=== PATIENT | male | born 1950 | race Caucasian/White ===

== ENCOUNTER 2023-12-11 13:21 | Inpatient (IN) | payer MEDICARE, MEDICAID, SELFPAY ==
--- NOTE | ~2023-12-11 | XR_ITS ---
EXAMINATION: XR ABDOMEN KUB CLINICAL INDICATION: Constipation COMPARISON: None available. TECHNIQUE: AP view of the abdomen. FINDINGS: AP supine x-rays of the abdomen show diffuse air filled large and small bowel loops. The right upper abdominal jejunal loop shows borderline dilatation to 3.2 cm in diameter. Fecal shadows are seen filling the transverse and descending colon. There is normal visualization of rectosigmoid bowel gas. Multiple surgical clips are seen in midline lower pelvic cavity. Multiple Spring coil-like surgical anchors are seen in the right lower abdomen. XR/XR KUB IMPRESSION: 1. Diffuse air-filled large and small bowel loops are seen. The right upper abdominal jejunal loop shows borderline dilatation to 3.2 cm in diameter. The findings are nonspecific and could reflect an ileus. 2. Fecal retention in transverse and descending colon is seen. 3. Status post pelvic surgery, possible prostatectomy and right lower abdominal herniorrhaphy.
--- NOTE | ~2023-12-11 | XR_ITS ---
EXAMINATION: XR ABDOMEN KUB CLINICAL INDICATION: Constipation COMPARISON: None available. TECHNIQUE: AP view of the abdomen. FINDINGS: There is moderate stool burden noted throughout the colon with gas pattern is nonobstructive. Multiple surgical clips and postsurgical changes overlie the pelvis. Prominent degenerative scoliosis of the lumbar spine with convex curve to the left. Moderate arthrosis of the left hip joint. 5. There are rounded calcification overlying the right kidney likely reflects a renal calculus. XR/XR KUB IMPRESSION: 1. Moderate stool burden throughout the colon. 2. Postsurgical changes. 3. Suspect right renal calculus.
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
[2023-12-11 14:00] VITALS: BP 145/75; PULSE 90; RESP 18; TEMP 36.7; O2SAT 96
--- NOTE | 2023-12-11 16:14 | PC.ADMIT ---
Didier, 73 y.o. male admitted to ED/[facility] from [facility] for suicidal and homicidal ideation. Patient is alert, oriented x4. Lives alone in an apartment, often feels isolated. During assessment denies SI, HI, AVH. Reported recent increase in depression and anxiety d/t feeling hopeless regarding being unable to take care of needs at home. Also he would like to get help regarding his mental health. Pt ambulates independently, gait steady. Skin check completed - intact. T 98.1, P 90. BP 145/75, O2sat 96% on RA. Denies pain. WT 183.6 lb.
[2023-12-11 18:00] VITALS: BP 129/77; PULSE 77; RESP 16; TEMP 35.9; O2SAT 97
--- NOTE | 2023-12-11 18:34 | PC.ADMIT ---
New order from Farzane[facility] Red for KUB x-ray d/t patient c/o prolonged constipation. X-ray completed, awaiting report.
[2023-12-11 19:20] VITALS: BMI 24.2
[2023-12-11] MEDS: diazePAM 5 MG TABLET PO (21:19)
[2023-12-11] MEDS: traZODone HCL 100 MG TABLET 200 MG PO (21:19)
[2023-12-12] MEDS: traZODone HCL 50 MG TABLET PO (00:06)
[2023-12-12 07:51] LABS: Estimated Average Glucose 103 mg/dL; Hemoglobin A1c % 5.2 % (<6.0)
[2023-12-12 07:59] LABS: Alanine Aminotransferase 17 U/L (0-40); Albumin Level 3.7 g/dL (3.5-5.0); Alkaline Phosphatase 65 U/L (39-117); Anion Gap 12 (12-20); Aspartate Amino Transferase 14 U/L (5-37); Bilirubin Total 0.8 mg/dL (0.0-1.0); Blood Urea Nitrogen 21 mg/dL (9-16); Calcium 9.2 mg/dL (8.4-10.2); Carbon Dioxide 27 mmol/L (22-29); Chloride 107 mmol/L (96-108); Cholesterol 173 mg/dL (<200); Estimated Glomerular Filt Rate > 60; Glucose Fasting 86 mg/dL (60-99); HDL Cholesterol 46 mg/dL (>40); LDL Cholesterol Calculated 116 mg/dL (<100); Potassium 4.7 mmol/L (3.3-5.1); Sodium 141 mmol/L (135-145); Total Protein 6.4 g/dL (6.5-8.0); Triglycerides 57 mg/dL (<150)
[2023-12-12 08:14] LABS: Thyroid Stimulating Hormone 1.21 uIU/mL (0.32-4.0)
[2023-12-12 08:19] VITALS: BP 121/66; PULSE 70; RESP 16; TEMP 37; O2SAT 96
[2023-12-12] MEDS: buPROPion HCl XL 150 MG TAB.ER.24H 450 MG PO (08:21)
[2023-12-12] MEDS: DULoxetine HCl 60 MG CAPSULE.DR PO (08:22)
[2023-12-12] MEDS: diazePAM 5 MG TABLET PO ×3 (08:22→22:05)
[2023-12-12] MEDS: Lurasidone HCl 20 MG TABLET PO (08:22)
[2023-12-12] MEDS: Amphetamine Mixed Salts 10 MG TABLET 15 MG PO ×2 (08:22→16:23)
[2023-12-12 08:28] LABS: Folate 9.8 ng/mL (> or = 4.0); Vitamin B12 813 pg/mL (200-900)
[2023-12-12] MEDS: Docusate Sodium 100 MG CAPSULE 200 MG PO (09:11)
[2023-12-12] MEDS: Milk of Magnesia 30 ML ORAL.SUSP PO ×2 (09:11→20:09)
--- NOTE | 2023-12-12 10:14 | HO.PM.IMCN ---
History of Present Illness Data of Consult Service Date: 12/12/23 Primary Care Provider: Hossein Morejon MD HPI 73 year old male PMH depression, GERD, esophageal dysplasia, chronic constipation admittion to psychiatric service for acute decompensation of major depressive disorder. Patient was transferred from [facility] 12/11/2023 to [facility] psychiatric service. Patient seen/examined by Hospital service 0915 12/12/23. Patient reports he feels well overall, reports chronic constipation, last BM 7 weeks ago. KUB was ordered by provider overnight, results as below. Also reports hx of GERD and requesting prn tums in addition to his home PPI. Denies nausea/vomiting/abdominal pain, chest discomfort, dyspnea, hematuria, melena, hematochezia, recent trauma/travel, HI/SI. PMFSH Social History Household Members: None Housing: Apartment Do you presently have visiting nurse or other home services: No Patient Tobacco Use Status: Never used Tobacco Use of substances other than those prescribed or required for medical reasons: No Currently Displaying Signs/Symptoms of Drug Intoxication Withdrawal: No Have you been hit, kicked, punched, or otherwise hurt by someone within the past year? If so, by whom?: No Do you feel safe in your current relationship?: Yes Is there a partner from a previous relationship who is making you feel unsafe now?: No Are you made to feel afraid or neglected: No Advance Directives: Yes Advance Directives Information Provided: Yes Advance Directives on File: No Do you have thoughts of harming others: None Do you have a plan to hurt others: No Plan Recently lost weight without trying: Unsure Poor oral hygiene: No Meds Allergies Allergy/AdvReac Type Severity Reaction Status Date / Time amoxicillin Allergy Unknown Verified 12/11/23 17:16 oxycodone Allergy Unknown Verified 12/11/23 17:16 Active Medications: Current Medications Acetaminophen (Acetaminophen 325 Mg Tablet) 650 mg PO Q6H PRN PRN Reason: Headache/Pain Mild Scale (1-3) Al Hydroxide/Mg Hydroxide (Magnesium Hydrox/Alum Hydrox 30 Ml Oral.Susp) 30 ml PO Q6H PRN PRN Reason: Heartburn/Nausea Amphetamine/Dextroamphetamine (Amphetamine Mixed Salts 10 Mg Tablet) 15 mg PO BIDWM [facility] Last Admin: 12/12/23 08:22 Dose: 15 mg Bupropion HCl (Bupropion Hcl Xl 150 Mg Tab.Er.24h) 450 mg PO DAILY [facility] Last Admin: 12/12/23 08:21 Dose: 450 mg Diazepam (Diazepam 5 Mg Tablet) 5 mg PO TID [facility] Last Admin: 12/12/23 08:22 Dose: 5 mg Docusate Sodium (Docusate Sodium 100 Mg Capsule) 200 mg PO DAILY [facility] Last Admin: 12/12/23 09:11 Dose: 200 mg Duloxetine HCl (Duloxetine Hcl 60 Mg Capsule.Dr) 60 mg PO DAILY [facility] Last Admin: 12/12/23 08:22 Dose: 60 mg Hydroxyzine HCl (Hydroxyzine Hcl 25 Mg Tablet) 25 mg PO Q6H PRN PRN Reason: Anxiety Lurasidone HCl (Lurasidone Hcl 20 Mg Tablet) 20 mg PO DAILY [facility] Last Admin: 12/12/23 08:22 Dose: 20 mg Magnesium Hydroxide (Milk Of Magnesia 30 Ml Oral.Susp) 30 ml PO DAILY PRN PRN Reason: Constipation Last Admin: 12/12/23 09:11 Dose: 30 ml Trazodone HCl (Trazodone Hcl 50 Mg Tablet) 50 mg PO BEDTIME MRX1 PRN PRN Reason: Insomnia Last Admin: 12/12/23 00:06 Dose: 50 mg Trazodone HCl (Trazodone Hcl 100 Mg Tablet) 200 mg PO BEDTIME PRN PRN Reason: Insomnia Last Admin: 12/11/23 21:19 Dose: 200 mg Home Medications Medication Instructions Recorded Confirmed Last Taken Type bupropion HCl 200 mg tablet,12 hr 200 mg PO BID 12/11/23 12/11/23 Unknown History sustained-release dextroamphetamine-amphetamine 15 15 mg PO BID 12/11/23 12/11/23 Unknown History mg tablet (Adderall) diazepam 5 mg tablet 5 mg PO TID 12/11/23 12/11/23 Unknown History duloxetine 60 mg capsule,delayed 60 mg PO DAILY 12/11/23 12/11/23 Unknown History release lurasidone 20 mg tablet 20 mg PO DAILY 12/11/23 12/11/23 Unknown History trazodone 100 mg tablet 200 mg PO QPM PRN Insomnia 12/11/23 12/11/23 Unknown History Physical Exam Vital Signs and Narrative: Vital Signs: Last Vital Signs Temp 98.6 F 12/12/23 08:19 Pulse 70 12/12/23 08:19 Resp 16 12/12/23 08:19 BP 121/66 12/12/23 08:19 Pulse Ox 96 12/12/23 08:19 O2 Del Method Room Air 12/12/23 08:19 BMI result Body Mass Index 24.2 Constitutional: Well appearing, year old male, NAD HEENT: No lymphadenopathy, no scleral icterae, no JVD Cardiovascular: S1/S2 heard, No MRG Respiratory: Lung sounds CTA bilaterally Gastrointestinal: Normal BS throughout, neg murphys. : Deferred Neuro: No FND, moving all 4 extremities spontaneously Psych: Calm/cooperative IV Line: none placed Results Labs 12/12/23 07:28 Labs: Laboratory Results - last 24 hr 12/12/23 07:28 Anion Gap 12 Estim Creat Clear Calc 66.0 Estimated GFR > 60 Fasting Glucose 86 Estimat Average Glucose 103 Hemoglobin A1c % 5.2 Calcium 9.2 Total Bilirubin 0.8 AST 14 ALT 17 Alkaline Phosphatase 65 Total Protein 6.4 L Albumin 3.7 Triglycerides 57 Cholesterol 173 LDL Cholesterol, Calc 116 H HDL Cholesterol 46 Vitamin B12 813 Folate 9.8 TSH 1.21 Assessment and Plan (1) GERD (gastroesophageal reflux disease): Status: Acute (2) Constipation: Status: Acute Plan 73 yo male aforementioned PMH admitted to psychiatric service for acute decompensation psychiatric disorder 1. History of GERD/Esophageal Dysplasia/ Chronic Constipation: sig hx of acid reflux/constipation at home, on omeprazole at home, requesting tums prn, he does not take chronic meds for his constipation at home, last BM 7 weeks ago. He states that when he becomes impacted he manually disimpacts himself and is requesting to do so. Offical read on KUB not competed as of 12/12 although it appears there is extensive impaction of stool. pt remains HD stable, no report of abd pain, no special dietary restrictions requested. Plan: -start docusate 200mg daily -MOM prn -unit to determine if manual disimpaction by patient is ok per there standards. Unit advised to hold off giving pt permission to do so until KUB is officially read -increase PO h20, fiber supplementation -regular diet 2. Major depressive disorder: management as per psychiatric care team.
--- NOTE | 2023-12-12 10:18 | P.CONHOSP_ITS ---
History of Present Illness Data of Consult Primary Care Provider: Hossein Morejon MD HPI 73 year old male PMH major depression, GERD, esophageal dysplasia, chronic constipation presents for [facility] Social History Household Members: None Housing: Apartment Do you presently have visiting nurse or other home services: No Patient Tobacco Use Status: Never used Tobacco Use of substances other than those prescribed or required for medical reasons: No Have you been hit, kicked, punched, or otherwise hurt by someone within the past year? If so, by whom?: No Do you feel safe in your current relationship?: Yes Is there a partner from a previous relationship who is making you feel unsafe now?: No Are you made to feel afraid or neglected: No Advance Directives: Yes Advance Directives Information Provided: Yes Advance Directives on File: No Do you have thoughts of harming others: None Do you have a plan to hurt others: No Plan Recently lost weight without trying: Unsure Poor oral hygiene: No Meds Allergies Allergy/AdvReac Type Severity Reaction Status Date / Time amoxicillin Allergy Unknown Verified 12/11/23 17:16 oxycodone Allergy Unknown Verified 12/11/23 17:16 Active Medications: Current Medications Acetaminophen (Acetaminophen 325 Mg Tablet) 650 mg PO Q6H PRN PRN Reason: Headache/Pain Mild Scale (1-3) Al Hydroxide/Mg Hydroxide (Magnesium Hydrox/Alum Hydrox 30 Ml Oral.Susp) 30 ml PO Q6H PRN PRN Reason: Heartburn/Nausea Amphetamine/Dextroamphetamine (Amphetamine Mixed Salts 10 Mg Tablet) 15 mg PO BIDWM [facility] Last Admin: 12/12/23 08:22 Dose: 15 mg Bupropion HCl (Bupropion Hcl Xl 150 Mg Tab.Er.24h) 450 mg PO DAILY [facility] Last Admin: 12/12/23 08:21 Dose: 450 mg Diazepam (Diazepam 5 Mg Tablet) 5 mg PO TID [facility] Last Admin: 12/12/23 08:22 Dose: 5 mg Docusate Sodium (Docusate Sodium 100 Mg Capsule) 200 mg PO DAILY [facility] Last Admin: 12/12/23 09:11 Dose: 200 mg Duloxetine HCl (Duloxetine Hcl 60 Mg Capsule.Dr) 60 mg PO DAILY [facility] Last Admin: 12/12/23 08:22 Dose: 60 mg Hydroxyzine HCl (Hydroxyzine Hcl 25 Mg Tablet) 25 mg PO Q6H PRN PRN Reason: Anxiety Lurasidone HCl (Lurasidone Hcl 20 Mg Tablet) 20 mg PO DAILY [facility] Last Admin: 12/12/23 08:22 Dose: 20 mg Magnesium Hydroxide (Milk Of Magnesia 30 Ml Oral.Susp) 30 ml PO DAILY PRN PRN Reason: Constipation Last Admin: 12/12/23 09:11 Dose: 30 ml Trazodone HCl (Trazodone Hcl 50 Mg Tablet) 50 mg PO BEDTIME MRX1 PRN PRN Reason: Insomnia Last Admin: 12/12/23 00:06 Dose: 50 mg Trazodone HCl (Trazodone Hcl 100 Mg Tablet) 200 mg PO BEDTIME PRN PRN Reason: Insomnia Last Admin: 12/11/23 21:19 Dose: 200 mg Home Medications Medication Instructions Recorded Confirmed Last Taken Type bupropion HCl 200 mg tablet,12 hr 200 mg PO BID 12/11/23 12/11/23 Unknown History sustained-release dextroamphetamine-amphetamine 15 15 mg PO BID 12/11/23 12/11/23 Unknown History mg tablet (Adderall) diazepam 5 mg tablet 5 mg PO TID 12/11/23 12/11/23 Unknown History duloxetine 60 mg capsule,delayed 60 mg PO DAILY 12/11/23 12/11/23 Unknown History release lurasidone 20 mg tablet 20 mg PO DAILY 12/11/23 12/11/23 Unknown History trazodone 100 mg tablet 200 mg PO QPM PRN Insomnia 12/11/23 12/11/23 Unknown History Physical Exam 2 Vital Signs and Narrative: Vital Signs: Last Vital Signs Temp 98.6 F 12/12/23 08:19 Pulse 70 12/12/23 08:19 Resp 16 12/12/23 08:19 BP 121/66 12/12/23 08:19 Pulse Ox 96 12/12/23 08:19 O2 Del Method Room Air 12/12/23 08:19 BMI result Body Mass Index 24.2 Results Labs 12/12/23 07:28 Labs: Laboratory Results - last 24 hr 12/12/23 07:28 Anion Gap 12 Estim Creat Clear Calc 66.0 Estimated GFR > 60 Fasting Glucose 86 Estimat Average Glucose 103 Hemoglobin A1c % 5.2 Calcium 9.2 Total Bilirubin 0.8 AST 14 ALT 17 Alkaline Phosphatase 65 Total Protein 6.4 L Albumin 3.7 Triglycerides 57 Cholesterol 173 LDL Cholesterol, Calc 116 H HDL Cholesterol 46 Vitamin B12 813 Folate 9.8 TSH 1.21
--- NOTE | 2023-12-12 10:33 | HO.PSYCHPN ---
Subjective Subjective Date of Service: 12/12/23 Reason For Visit: SI Subjective Notes: Conditional Voluntary Interim History: Pt decline using bipap- he reports he did not want to bother anyone. He reports he feels unit may not be best fit for him as most pt with dementia. He denies plan or intent to harm himself but mostly talks about existential questions of living decade more and feeling lonely and with multiple financial stressors. He has been visible on the unit. Review of Systems Review of Systems Pt reports constipation for the past 7 weeks. Denies abdominal pain, no vomiting, able to pass gas No headache No chest pain No cough or SOB Mental Status Exam Mental Status Exam Narrative: Appearance:tall, casually groomed, good hygiene, in NAD Behavior:cooperative Psychomotor:no agitation or retardation noted Speech:clear, verbose, normal rate/rhythm/volume, spontaneous TP:tangential TC:on and off periods of depression, feeling lonely Mood: depressed, I don't see how I can live for 20 more years Affect:brightens up at times SI: passive HI:none VH/AH:none Delusions: none Insight/judgment: fair x 2. Memory/cog: alert, oriented x 3. Diagnostics Vital Signs (24Hr): Vital Signs - 24 hr 12/11/23 14:00 12/11/23 18:00 12/12/23 08:19 Temperature 98.1 F 96.6 F L 98.6 F Pulse Rate 90 77 70 Respiratory Rate 18 16 16 Blood Pressure 145/75 H 129/77 121/66 Pulse Oximetry 96 97 96 Oxygen Delivery Method Room Air Room Air Room Air BMI result Body Mass Index 24.2 Labs 12/12/23 07:28 Labs: Laboratory Results - last 48 hr 12/12/23 07:28 Sodium 141 Potassium 4.7 Chloride 107 Carbon Dioxide 27 Anion Gap 12 BUN 21 H Creatinine 1.16 Estim Creat Clear Calc 66.0 Estimated GFR > 60 Fasting Glucose 86 Estimat Average Glucose 103 Hemoglobin A1c % 5.2 Calcium 9.2 Total Bilirubin 0.8 AST 14 ALT 17 Alkaline Phosphatase 65 Total Protein 6.4 L Albumin 3.7 Triglycerides 57 Cholesterol 173 LDL Cholesterol, Calc 116 H HDL Cholesterol 46 Vitamin B12 813 Folate 9.8 TSH 1.21 Medications Medications Current Medications Acetaminophen (Acetaminophen 325 Mg Tablet) 650 mg PO Q6H PRN PRN Reason: Headache/Pain Mild Scale (1-3) Al Hydroxide/Mg Hydroxide (Magnesium Hydrox/Alum Hydrox 30 Ml Oral.Susp) 30 ml PO Q6H PRN PRN Reason: Heartburn/Nausea Amphetamine/Dextroamphetamine (Amphetamine Mixed Salts 10 Mg Tablet) 15 mg PO BIDWM [facility] Last Admin: 12/12/23 08:22 Dose: 15 mg Bupropion HCl (Bupropion Hcl Xl 150 Mg Tab.Er.24h) 450 mg PO DAILY [facility] Last Admin: 12/12/23 08:21 Dose: 450 mg Diazepam (Diazepam 5 Mg Tablet) 5 mg PO TID [facility] Last Admin: 12/12/23 08:22 Dose: 5 mg Docusate Sodium (Docusate Sodium 100 Mg Capsule) 200 mg PO DAILY [facility] Last Admin: 12/12/23 09:11 Dose: 200 mg Duloxetine HCl (Duloxetine Hcl 60 Mg Capsule.Dr) 60 mg PO DAILY [facility] Last Admin: 12/12/23 08:22 Dose: 60 mg Hydroxyzine HCl (Hydroxyzine Hcl 25 Mg Tablet) 25 mg PO Q6H PRN PRN Reason: Anxiety Lurasidone HCl (Lurasidone Hcl 20 Mg Tablet) 20 mg PO DAILY [facility] Last Admin: 12/12/23 08:22 Dose: 20 mg Magnesium Hydroxide (Milk Of Magnesia 30 Ml Oral.Susp) 30 ml PO DAILY PRN PRN Reason: Constipation Last Admin: 12/12/23 09:11 Dose: 30 ml Trazodone HCl (Trazodone Hcl 50 Mg Tablet) 50 mg PO BEDTIME MRX1 PRN PRN Reason: Insomnia Last Admin: 12/12/23 00:06 Dose: 50 mg Trazodone HCl (Trazodone Hcl 100 Mg Tablet) 200 mg PO BEDTIME PRN PRN Reason: Insomnia Last Admin: 12/11/23 21:19 Dose: 200 mg Allergies Allergies Allergy/AdvReac Type Severity Reaction Status Date / Time amoxicillin Allergy Unknown Verified 12/11/23 17:16 oxycodone Allergy Unknown Verified 12/11/23 17:16 Assessment & Plan Assessment & Plan (1) MDD (major depressive disorder), recurrent episode, moderate: Status: Acute Code(s): F33.1 - Major depressive disorder, recurrent, moderate Plan Mr. Horn is a 73 year-old male with hx of MDD, possible PD who self presented to [facility] due to increase depression and suicidal ideation with plan to buy a gun. His utox is negative. 12/12 continue tx. Reason for continued inpatient stay Substantial Risk for: inability to function Time Spent With Patient Time: Total time managing care of this patient today ____ minutes.
[2023-12-12 11:47] LABS: Influenza A PCR NEGATIVE (Negative); Influenza B PCR NEGATIVE (Negative); Resp Syncy Virus RNA Qual PCR NEGATIVE (Negative); SARS COV2 PCR INHOUSE NEGATIVE (Negative)
[2023-12-12 18:00] VITALS: BP 137/79; PULSE 72; RESP 18; TEMP 36.1; O2SAT 98
[2023-12-12] MEDS: polyethylene glycoL 3350 17 GM POWD.PACK PO (21:45)
[2023-12-12] MEDS: traZODone HCL 100 MG TABLET 200 MG PO (22:04)
--- NOTE | 2023-12-12 23:42 | PC.NURSE ---
toyin cisneros contacted notified 1. results of kub reviewed 2. pt is is experiencing OCD symptoms in regard to his bowels 3. in great detail pt describes enrollment in high colonic program in [facility] for constipation 4. pt states that he frequently disimpacts self digitally 5. pt states fleet enemas are ineffective 6. pt states no bm in 7 weeks 7. pt has declined bipap for the night-plan 1. miralax 17 grams oral powder/liquid 2. if needed over night will give SSEX 1 PRN for constipation 3. will revisit constipation in the am.
--- NOTE | 2023-12-12 23:52 | PC.RT ---
Pt refusing CPAP at this time; will not wear due to no Nasal mask option
[2023-12-13 08:00] VITALS: BP 150/85; PULSE 78; RESP 18; TEMP 36.8; O2SAT 98
[2023-12-13] MEDS: Amphetamine Mixed Salts 10 MG TABLET 15 MG PO ×2 (08:41→15:03)
[2023-12-13] MEDS: Lurasidone HCl 20 MG TABLET PO (08:41)
[2023-12-13] MEDS: buPROPion HCl XL 150 MG TAB.ER.24H 450 MG PO (08:41)
[2023-12-13] MEDS: DULoxetine HCl 60 MG CAPSULE.DR PO (08:42)
[2023-12-13] MEDS: diazePAM 5 MG TABLET PO ×3 (08:42→20:32)
[2023-12-13] MEDS: Lactulose 20 GM/30 ML SOLUTION PO ×3 (09:52→20:33)
--- NOTE | 2023-12-13 15:15 | P.PNPSI_ITS ---
Subjective Subjective Date of Service: 12/13/23 Reason For Visit: SI Subjective Notes: Conditional Voluntary and 3 Day Interim History: Pt slept most of the night. He had KUB moderate stool, no obstruction. will add lactulose. miralax and if needed enema. Pt denies any plan or intent to harm himself. He reports he may want to be discharge soon as unit mostly for dementia pts. He states he feels a bit better. He has been visible on the unit. Review of Systems Review of Systems Pt reports constipation for the past 7 weeks. Denies abdominal pain, no vomiting, able to pass gas No headache No chest pain No cough or SOB Mental Status Exam Mental Status Exam Narrative: Appearance:tall, casually groomed, good hygiene, in NAD Behavior:cooperative Psychomotor:no agitation or retardation noted Speech:clear, verbose, normal rate/rhythm/volume, spontaneous TP:tangential TC:on and off periods of depression, feeling lonely Mood: depressed, I don't see how I can live for 20 more years Affect:brightens up at times SI: passive HI:none VH/AH:none Delusions: none Insight/judgment: fair x 2. Memory/cog: alert, oriented x 3. Diagnostics Vital Signs (24Hr): Vital Signs - 24 hr 12/12/23 18:00 12/13/23 08:00 Temperature 97 F 98.2 F Pulse Rate 72 78 Respiratory Rate 18 18 Blood Pressure 137/79 150/85 H Pulse Oximetry 98 98 Oxygen Delivery Method Room Air Room Air BMI result Body Mass Index 24.2 Labs 12/12/23 07:28 Labs: Laboratory Results - last 48 hr 12/12/23 12/12/23 07:28 10:45 Sodium 141 Potassium 4.7 Chloride 107 Carbon Dioxide 27 Anion Gap 12 BUN 21 H Creatinine 1.16 Estim Creat Clear Calc 66.0 Estimated GFR > 60 Fasting Glucose 86 Estimat Average Glucose 103 Hemoglobin A1c % 5.2 Calcium 9.2 Total Bilirubin 0.8 AST 14 ALT 17 Alkaline Phosphatase 65 Total Protein 6.4 L Albumin 3.7 Triglycerides 57 Cholesterol 173 LDL Cholesterol, Calc 116 H HDL Cholesterol 46 Vitamin B12 813 Folate 9.8 TSH 1.21 Influenza Type A (PCR) NEGATIVE Influenza Type B (PCR) NEGATIVE RSV RNA Qual (PCR) NEGATIVE SARS-CoV-2 RNA (RT-PCR) NEGATIVE Imaging Radiology Impressions: ITS Impressions KUB X-Ray 12/11/23 17:00 IMPRESSION: 1. Moderate stool burden throughout the colon. 2. Postsurgical changes. 3. Suspect right renal calculus. Medications Medications Current Medications Acetaminophen (Acetaminophen 325 Mg Tablet) 650 mg PO Q6H PRN PRN Reason: Headache/Pain Mild Scale (1-3) Al Hydroxide/Mg Hydroxide (Magnesium Hydrox/Alum Hydrox 30 Ml Oral.Susp) 30 ml PO Q6H PRN PRN Reason: Heartburn/Nausea Amphetamine/Dextroamphetamine (Amphetamine Mixed Salts 10 Mg Tablet) 15 mg PO BID@0900,1500 [facility] Last Admin: 12/13/23 15:03 Dose: 15 mg Bupropion HCl (Bupropion Hcl Xl 150 Mg Tab.Er.24h) 450 mg PO DAILY [facility] Last Admin: 12/13/23 08:41 Dose: 450 mg Diazepam (Diazepam 5 Mg Tablet) 5 mg PO TID [facility] Last Admin: 12/13/23 15:03 Dose: 5 mg Duloxetine HCl (Duloxetine Hcl 60 Mg Capsule.Dr) 60 mg PO DAILY [facility] Last Admin: 12/13/23 08:42 Dose: 60 mg Hydroxyzine HCl (Hydroxyzine Hcl 25 Mg Tablet) 25 mg PO Q6H PRN PRN Reason: Anxiety Lactulose (Lactulose 20 Gm/30 Ml Solution) 20 gm PO TID [facility] Last Admin: 12/13/23 15:03 Dose: 20 gm Lurasidone HCl (Lurasidone Hcl 20 Mg Tablet) 20 mg PO DAILY [facility] Last Admin: 12/13/23 08:41 Dose: 20 mg Magnesium Hydroxide (Milk Of Magnesia 30 Ml Oral.Susp) 30 ml PO DAILY PRN PRN Reason: Constipation Last Admin: 12/12/23 20:09 Dose: 30 ml Polyethylene Glycol (Polyethylene Glycol 3350 17 Gm Powd.Pack) 17 gm PO DAILY [facility] Last Admin: 12/13/23 08:46 Dose: Not Given Senna/Docusate Sodium (Sennosides/Docusate Sodium Tablet) 1 tab PO BID [facility] Trazodone HCl (Trazodone Hcl 100 Mg Tablet) 200 mg PO BEDTIME PRN PRN Reason: Insomnia Last Admin: 12/12/23 22:04 Dose: 200 mg Allergies Allergies Allergy/AdvReac Type Severity Reaction Status Date / Time amoxicillin Allergy Unknown Verified 12/11/23 17:16 oxycodone Allergy Unknown Verified 12/11/23 17:16 Assessment & Plan Assessment & Plan (1) MDD (major depressive disorder), recurrent episode, moderate: Status: Acute Code(s): F33.1 - Major depressive disorder, recurrent, moderate Plan Mr. Horn is a 73 year-old male with hx of MDD, possible PD who self presented to [facility] ED due to increase depression and suicidal ideation with plan to buy a gun. His utox is negative. 12/12 continue tx. 12/13 continue tx. Reason for continued inpatient stay Substantial Risk for: inability to function Time Spent With Patient Time: Total time managing care of this patient today ____ minutes.
[2023-12-13 18:00] VITALS: BP 139/78; PULSE 77; RESP 18; TEMP 36.1; O2SAT 98
[2023-12-13] MEDS: traZODone HCL 100 MG TABLET 200 MG PO (20:32)
[2023-12-13] MEDS: LORazepam 0.5 MG TABLET PO (23:31)
[2023-12-14 08:00] VITALS: BP 121/67; PULSE 64; RESP 18; TEMP 35.9; O2SAT 97
[2023-12-14] MEDS: Amphetamine Mixed Salts 10 MG TABLET 15 MG PO ×2 (08:27→15:00)
[2023-12-14] MEDS: DULoxetine HCl 60 MG CAPSULE.DR PO (08:28)
[2023-12-14] MEDS: Lurasidone HCl 20 MG TABLET PO (08:28)
[2023-12-14] MEDS: diazePAM 5 MG TABLET PO ×3 (08:28→21:43)
[2023-12-14] MEDS: buPROPion HCl XL 150 MG TAB.ER.24H 450 MG PO (08:28)
[2023-12-14] MEDS: Lactulose 20 GM/30 ML SOLUTION PO ×3 (08:29→21:43)
[2023-12-14] MEDS: Sennosides/Docusate Sodium TABLET 1 TAB PO ×2 (08:29→21:43)
[2023-12-14] MEDS: polyethylene glycoL 3350 17 GM POWD.PACK PO (08:29)
[2023-12-14 12:09] LABS: COVID-19 Test Negative (Negative); IDNOW Serial# 58CA691E
[2023-12-14] MEDS: Calcium Carbonate 750 MG TAB.CHEW PO ×2 (12:38→21:48)
--- NOTE | 2023-12-14 13:16 | P.PNPSI_ITS ---
Subjective Subjective Date of Service: 12/14/23 Reason For Visit: SI Subjective Notes: Conditional Voluntary Interim History: Pt retract 3 day notice. 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 Efrain Villasenor. Per Dr. Villasenor pt has seen increasingly more depressed in the past [address] Villasenor reports that it has been difficult to manage depression with medications and most recent medication has been latuda. Dr. Villasenor would agree with ECT if needed. We also discussed underlying cognitive impairments, gaps in memory, questions of more significant cognitive impairments affecting his ability to function increasing financial stress. Initially, Mr. Horn had signed 3 day notice, he retracted it with hopes to have ACL/MOCA, reassess mood and clinical indication for ECT. It does appear at times that is his inability to function due to underlying cognitive affecting his feeling of being overwhelmed. Review of Systems Review of Systems Pt reports constipation for the past 7 weeks. Denies abdominal pain, no vomiting, able to pass gas No headache No chest pain No cough or SOB Mental Status Exam Mental Status Exam Narrative: Appearance:tall, casually groomed, good hygiene, in NAD Behavior:cooperative Psychomotor:no agitation or retardation noted Speech:clear, verbose, normal rate/rhythm/volume, spontaneous TP:tangential TC:on and off periods of depression, feeling lonely Mood: depressed, I don't see how I can live for 20 more years Affect:brightens up at times SI: passive HI:none VH/AH:none Delusions: none Insight/judgment: fair x 2. Memory/cog: alert, oriented x 3. Diagnostics Vital Signs (24Hr): Vital Signs - 24 hr 12/13/23 18:00 12/14/23 08:00 Temperature 96.9 F 96.7 F L Pulse Rate 77 64 Respiratory Rate 18 18 Blood Pressure 139/78 121/67 Pulse Oximetry 98 97 Oxygen Delivery Method Room Air Room Air BMI result Body Mass Index 24.2 Labs 12/12/23 07:28 Labs: Laboratory Results - last 48 hr 12/14/23 11:10 COVID-19 ([facility]) Negative COVID-19 Clin Com See Note Imaging Radiology Impressions: ITS Impressions KUB X-Ray 12/11/23 17:00 IMPRESSION: 1. Moderate stool burden throughout the colon. 2. Postsurgical changes. 3. Suspect right renal calculus. Medications Medications Current Medications Acetaminophen (Acetaminophen 325 Mg Tablet) 650 mg PO Q6H PRN PRN Reason: Headache/Pain Mild Scale (1-3) Al Hydroxide/Mg Hydroxide (Magnesium Hydrox/Alum Hydrox 30 Ml Oral.Susp) 30 ml PO Q6H PRN PRN Reason: Heartburn/Nausea Amphetamine/Dextroamphetamine (Amphetamine Mixed Salts 10 Mg Tablet) 15 mg PO BID@0900,1500 [facility] Last Admin: 12/14/23 08:27 Dose: 15 mg Bupropion HCl (Bupropion Hcl Xl 150 Mg Tab.Er.24h) 450 mg PO DAILY [facility] Last Admin: 12/14/23 08:28 Dose: 450 mg Calcium Carbonate (Calcium Carbonate 750 Mg Tab.Chew) 750 mg PO Q4H PRN PRN Reason: acid reflux Last Admin: 12/14/23 12:38 Dose: 750 mg Diazepam (Diazepam 5 Mg Tablet) 5 mg PO TID [facility] Last Admin: 12/14/23 08:28 Dose: 5 mg Duloxetine HCl (Duloxetine Hcl 60 Mg Capsule.Dr) 60 mg PO DAILY [facility] Last Admin: 12/14/23 08:28 Dose: 60 mg Hydroxyzine HCl (Hydroxyzine Hcl 25 Mg Tablet) 25 mg PO Q6H PRN PRN Reason: Anxiety Lactulose (Lactulose 20 Gm/30 Ml Solution) 20 gm PO TID [facility] Last Admin: 12/14/23 08:29 Dose: 20 gm Lurasidone HCl (Lurasidone Hcl 20 Mg Tablet) 20 mg PO DAILY [facility] Last Admin: 12/14/23 08:28 Dose: 20 mg Magnesium Hydroxide (Milk Of Magnesia 30 Ml Oral.Susp) 30 ml PO DAILY PRN PRN Reason: Constipation Last Admin: 12/12/23 20:09 Dose: 30 ml Polyethylene Glycol (Polyethylene Glycol 3350 17 Gm Powd.Pack) 17 gm PO DAILY [facility] Last Admin: 12/14/23 08:29 Dose: 17 gm Senna/Docusate Sodium (Sennosides/Docusate Sodium Tablet) 1 tab PO BID [facility] Last Admin: 12/14/23 08:29 Dose: 1 tab Trazodone HCl (Trazodone Hcl 100 Mg Tablet) 200 mg PO BEDTIME PRN PRN Reason: Insomnia Last Admin: 12/13/23 20:32 Dose: 200 mg Allergies Allergies Allergy/AdvReac Type Severity Reaction Status Date / Time amoxicillin Allergy Unknown Verified 12/11/23 17:16 oxycodone Allergy Unknown Verified 12/11/23 17:16 Assessment & Plan Assessment & Plan (1) MDD (major depressive disorder), recurrent episode, moderate: Status: Acute Code(s): F33.1 - Major depressive disorder, recurrent, moderate Plan Mr. Horn is a 73 year-old male with hx of MDD, possible PD who self presented to [facility] ED due to increase depression and suicidal ideation with plan to buy a gun. His utox is negative. 12/12 continue tx. 12/13 continue tx. 12/14 continue tx. Reason for continued inpatient stay Substantial Risk for: inability to function Time Spent With Patient Time: Total time managing care of this patient today ____ minutes.
[2023-12-14 20:21] VITALS: BP 132/66; PULSE 80; RESP 18; TEMP 36.2; O2SAT 96
[2023-12-14] MEDS: traZODone HCL 100 MG TABLET 200 MG PO (21:48)
--- NOTE | 2023-12-15 06:36 | PC.RT ---
pt continues to refuse cpap 3 nights in a row. Therefore the order will be completed
[2023-12-15 08:15] VITALS: BP 167/75; PULSE 76; RESP 18; TEMP 36.1; O2SAT 97
[2023-12-15] MEDS: polyethylene glycoL 3350 17 GM POWD.PACK PO (08:17)
[2023-12-15] MEDS: Lactulose 20 GM/30 ML SOLUTION PO ×3 (08:17→22:02)
[2023-12-15] MEDS: buPROPion HCl XL 150 MG TAB.ER.24H 450 MG PO (08:18)
[2023-12-15] MEDS: Lurasidone HCl 20 MG TABLET PO (08:18)
[2023-12-15] MEDS: DULoxetine HCl 60 MG CAPSULE.DR PO (08:18)
[2023-12-15] MEDS: diazePAM 5 MG TABLET PO ×3 (08:19→22:02)
[2023-12-15] MEDS: Sennosides/Docusate Sodium TABLET 1 TAB PO ×2 (08:19→22:02)
[2023-12-15] MEDS: Amphetamine Mixed Salts 10 MG TABLET 15 MG PO ×2 (08:19→15:35)
--- NOTE | 2023-12-15 09:50 | P.PNPSI_ITS ---
Subjective Subjective Date of Service: 12/15/23 Reason For Visit: SI Subjective Notes: Conditional Voluntary Interim History: Pt reports feeling depressed. He states he feels more hopeful thinking about benefit of having ECT. He also reports constipation, worried that he has not had BM since Thursday, which he reports was minimal. He also reports burning when urinating, not currently. ordered UA, KUB did show ? renal stone. will repeat KUB tomorrow. He denies plan or intent to harm himself. Medication Compliance: Yes Review of Systems Review of Systems Pt reports constipation for the past 7 weeks. Denies abdominal pain, no vomiting, able to pass gas No headache No chest pain No cough or SOB Mental Status Exam Mental Status Exam Narrative: Appearance:tall, casually groomed, good hygiene, in NAD Behavior:cooperative Psychomotor:no agitation or retardation noted Speech:clear, verbose, normal rate/rhythm/volume, spontaneous TP:tangential TC:on and off periods of depression, feeling lonely Mood: depressed, I don't see how I can live for 20 more years Affect:brightens up at times SI: passive HI:none VH/AH:none Delusions: none Insight/judgment: fair x 2. Memory/cog: alert, oriented x 3. Diagnostics Vital Signs (24Hr): Vital Signs - 24 hr 12/14/23 20:21 12/15/23 08:15 Temperature 97.2 F 96.9 F Pulse Rate 80 76 Respiratory Rate 18 18 Blood Pressure 132/66 167/75 H Pulse Oximetry 96 97 Oxygen Delivery Method Room Air Room Air BMI result Body Mass Index 24.2 Labs 12/12/23 07:28 Labs: Laboratory Results - last 48 hr 12/14/23 11:10 COVID-19 ([facility]) Negative COVID-19 Clin Com See Note Imaging Radiology Impressions: ITS Impressions KUB X-Ray 12/11/23 17:00 IMPRESSION: 1. Moderate stool burden throughout the colon. 2. Postsurgical changes. 3. Suspect right renal calculus. Medications Medications Current Medications Acetaminophen (Acetaminophen 325 Mg Tablet) 650 mg PO Q6H PRN PRN Reason: Headache/Pain Mild Scale (1-3) Al Hydroxide/Mg Hydroxide (Magnesium Hydrox/Alum Hydrox 30 Ml Oral.Susp) 30 ml PO Q6H PRN PRN Reason: Heartburn/Nausea Amphetamine/Dextroamphetamine (Amphetamine Mixed Salts 10 Mg Tablet) 15 mg PO BID@0900,1500 [facility] Last Admin: 12/15/23 08:19 Dose: 15 mg Bupropion HCl (Bupropion Hcl Xl 150 Mg Tab.Er.24h) 450 mg PO DAILY [facility] Last Admin: 12/15/23 08:18 Dose: 450 mg Calcium Carbonate (Calcium Carbonate 750 Mg Tab.Chew) 750 mg PO Q4H PRN PRN Reason: acid reflux Last Admin: 12/14/23 21:48 Dose: 750 mg Diazepam (Diazepam 5 Mg Tablet) 5 mg PO TID [facility] Last Admin: 12/15/23 08:19 Dose: 5 mg Duloxetine HCl (Duloxetine Hcl 60 Mg Capsule.Dr) 60 mg PO DAILY [facility] Last Admin: 12/15/23 08:18 Dose: 60 mg Hydroxyzine HCl (Hydroxyzine Hcl 25 Mg Tablet) 25 mg PO Q6H PRN PRN Reason: Anxiety Lactulose (Lactulose 20 Gm/30 Ml Solution) 20 gm PO TID [facility] Last Admin: 12/15/23 08:17 Dose: 20 gm Lurasidone HCl (Lurasidone Hcl 20 Mg Tablet) 20 mg PO DAILY [facility] Last Admin: 12/15/23 08:18 Dose: 20 mg Magnesium Hydroxide (Milk Of Magnesia 30 Ml Oral.Susp) 30 ml PO DAILY PRN PRN Reason: Constipation Last Admin: 12/12/23 20:09 Dose: 30 ml Polyethylene Glycol (Polyethylene Glycol 3350 17 Gm Powd.Pack) 17 gm PO DAILY [facility] Last Admin: 12/15/23 08:17 Dose: 17 gm Senna/Docusate Sodium (Sennosides/Docusate Sodium Tablet) 1 tab PO BID [facility] Last Admin: 12/15/23 08:19 Dose: 1 tab Trazodone HCl (Trazodone Hcl 100 Mg Tablet) 200 mg PO BEDTIME PRN PRN Reason: Insomnia Last Admin: 12/14/23 21:48 Dose: 200 mg Allergies Allergies Allergy/AdvReac Type Severity Reaction Status Date / Time amoxicillin Allergy Unknown Verified 12/11/23 17:16 oxycodone Allergy Unknown Verified 12/11/23 17:16 Assessment & Plan Assessment & Plan (1) MDD (major depressive disorder), recurrent episode, moderate: Status: Acute Code(s): F33.1 - Major depressive disorder, recurrent, moderate Plan Mr. Horn is a 73 year-old male with hx of MDD, possible PD who self presented to [facility] ED due to increase depression and suicidal ideation with plan to buy a gun. His utox is negative. 12/12 continue tx. 12/13 continue tx. 12/14 continue tx. 12/15 UA- burning sensation, KUB tomorrow, enema Reason for continued inpatient stay Substantial Risk for: inability to function Time Spent With Patient Time: Total time managing care of this patient today ____ minutes.
[2023-12-15] MEDS: Calcium Carbonate 750 MG TAB.CHEW PO ×2 (12:59→20:12)
[2023-12-15 13:59] LABS: Appearance Urine Clear; Color Urine Dark Yellow; Glucose Urine UA Negative (Negative); Leukocyte Esterase Urine Moderate (2+) (Negative); Nitrite Urine Negative (Negative); PH 6.5 (5.0-9.0); Specific Gravity - Urine >= 1.030 (1.005-1.025); UMIC TRIGGER UA YES; Urine Blood Negative (Negative); Urine Ketones Trace mg/dL (Negative); Urine Protein Negative (Neg-Trace)
[2023-12-15 14:30] LABS: Bacteria Urine None Seen (None Seen); Hyaline Casts Urine 0-2 /LPF (0-2); RBC Urine 0-2 /HPF (0-2); Squamous Epithelial Cell Urine 0-2 /HPF (0-2); WBC Urine >50 /HPF (0-5)
[2023-12-15 20:25] VITALS: BP 168/79; PULSE 100; RESP 18; TEMP 36.5; O2SAT 99
[2023-12-15] MEDS: traZODone HCL 100 MG TABLET 200 MG PO (22:02)
[2023-12-16 08:00] VITALS: BP 132/70; PULSE 67; RESP 18; TEMP 36; O2SAT 96
[2023-12-16] MEDS: Lactulose 20 GM/30 ML SOLUTION PO ×3 (08:37→21:14)
[2023-12-16] MEDS: DULoxetine HCl 60 MG CAPSULE.DR PO (08:38)
[2023-12-16] MEDS: diazePAM 5 MG TABLET PO ×3 (08:38→21:14)
[2023-12-16] MEDS: Amphetamine Mixed Salts 10 MG TABLET 15 MG PO ×2 (08:38→15:00)
[2023-12-16] MEDS: Sennosides/Docusate Sodium TABLET 1 TAB PO ×2 (08:38→21:14)
[2023-12-16] MEDS: buPROPion HCl XL 150 MG TAB.ER.24H 450 MG PO (08:38)
[2023-12-16] MEDS: polyethylene glycoL 3350 17 GM POWD.PACK PO (08:39)
[2023-12-16] MEDS: Lurasidone HCl 20 MG TABLET PO (08:39)
[2023-12-16] MEDS: Calcium Carbonate 750 MG TAB.CHEW PO (11:46)
[2023-12-16 12:32] LABS: COVID-19 Test Negative (Negative); IDNOW Serial# 9DB6401D
[2023-12-16 19:54] VITALS: BP 177/77; PULSE 65; RESP 17; TEMP 36.6; O2SAT 96
--- NOTE | 2023-12-16 20:32 | HO.PSYCHPN ---
Subjective Subjective Date of Service: 12/16/23 Reason For Visit: SI Subjective Notes: Conditional Voluntary and 3 Day Interim History: Pt slept through the night. He reports he would like to discharge and consider ECT later if needed with his outpatient psychiatrist. He denies SI/HI. He agrees to referral to [facility]. No VH/AH. visible, attends some groups. Review of Systems Review of Systems Pt reports constipation for the past 7 weeks. Denies abdominal pain, no vomiting, able to pass gas No headache No chest pain No cough or SOB Mental Status Exam Mental Status Exam Narrative: Appearance:tall, casually groomed, good hygiene, in NAD Behavior:cooperative Psychomotor:no agitation or retardation noted Speech:clear, verbose, normal rate/rhythm/volume, spontaneous TP:tangential TC:on and off periods of depression, feeling lonely Mood: depressed, I don't see how I can live for 20 more years Affect:brightens up at times SI: passive HI:none VH/AH:none Delusions: none Insight/judgment: fair x 2. Memory/cog: alert, oriented x 3. Diagnostics Vital Signs (24Hr): Vital Signs - 24 hr 12/16/23 08:00 12/16/23 19:54 Temperature 96.8 F 97.8 F Pulse Rate 67 65 Respiratory Rate 18 17 Blood Pressure 132/70 177/77 H Pulse Oximetry 96 96 Oxygen Delivery Method Room Air Room Air BMI result Body Mass Index 24.2 Labs 12/12/23 07:28 Labs: Laboratory Results - last 48 hr 12/15/23 12/16/23 13:10 11:30 Urine Color Dark Yellow Urine Appearance Clear Urine pH 6.5 Ur Specific [place] >= 1.030 H Urine Protein Negative Urine Glucose (UA) Negative Urine Ketones Trace Urine Blood Negative Urine Nitrite Negative Ur Leukocyte Esterase Moderate (2+) H Urine RBC 0-2 Urine WBC >50 H Ur Squamous Epith Cells 0-2 Urine Bacteria None Seen Hyaline Casts 0-2 COVID-19 ([facility]) Negative COVID-19 Clin Com See Note Imaging Radiology Impressions: ITS Impressions KUB X-Ray 12/11/23 17:00 IMPRESSION: 1. Moderate stool burden throughout the colon. 2. Postsurgical changes. 3. Suspect right renal calculus. Medications Medications Current Medications Acetaminophen (Acetaminophen 325 Mg Tablet) 650 mg PO Q6H PRN PRN Reason: Headache/Pain Mild Scale (1-3) Al Hydroxide/Mg Hydroxide (Magnesium Hydrox/Alum Hydrox 30 Ml Oral.Susp) 30 ml PO Q6H PRN PRN Reason: Heartburn/Nausea Amphetamine/Dextroamphetamine (Amphetamine Mixed Salts 10 Mg Tablet) 15 mg PO BID@0900,1500 [facility] Last Admin: 12/16/23 15:00 Dose: 15 mg Artificial Tears (Artificial Tears 15 Ml Drops) 2 drop EYE-BOTH Q4H PRN PRN Reason: dry eyes Bupropion HCl (Bupropion Hcl Xl 150 Mg Tab.Er.24h) 450 mg PO DAILY [facility] Last Admin: 12/16/23 08:38 Dose: 450 mg Calcium Carbonate (Calcium Carbonate 750 Mg Tab.Chew) 750 mg PO Q4H PRN PRN Reason: acid reflux Last Admin: 12/16/23 11:46 Dose: 750 mg Diazepam (Diazepam 5 Mg Tablet) 5 mg PO TID [facility] Last Admin: 12/16/23 15:00 Dose: 5 mg Duloxetine HCl (Duloxetine Hcl 60 Mg Capsule.Dr) 60 mg PO DAILY [facility] Last Admin: 12/16/23 08:38 Dose: 60 mg Hydroxyzine HCl (Hydroxyzine Hcl 25 Mg Tablet) 25 mg PO Q6H PRN PRN Reason: Anxiety Lactulose (Lactulose 20 Gm/30 Ml Solution) 20 gm PO TID [facility] Last Admin: 12/16/23 15:00 Dose: 20 gm Lurasidone HCl (Lurasidone Hcl 20 Mg Tablet) 20 mg PO DAILY [facility] Last Admin: 12/16/23 08:39 Dose: 20 mg Magnesium Hydroxide (Milk Of Magnesia 30 Ml Oral.Susp) 30 ml PO DAILY PRN PRN Reason: Constipation Last Admin: 12/12/23 20:09 Dose: 30 ml Polyethylene Glycol (Polyethylene Glycol 3350 17 Gm Powd.Pack) 17 gm PO DAILY [facility] Last Admin: 12/16/23 08:39 Dose: 17 gm Senna/Docusate Sodium (Sennosides/Docusate Sodium Tablet) 1 tab PO BID [facility] Last Admin: 12/16/23 08:38 Dose: 1 tab Trazodone HCl (Trazodone Hcl 100 Mg Tablet) 200 mg PO BEDTIME PRN PRN Reason: Insomnia Last Admin: 12/15/23 22:02 Dose: 200 mg Allergies Allergies Allergy/AdvReac Type Severity Reaction Status Date / Time amoxicillin Allergy Unknown Verified 12/11/23 17:16 oxycodone Allergy Unknown Verified 12/11/23 17:16 Assessment & Plan Assessment & Plan (1) MDD (major depressive disorder), recurrent episode, moderate: Status: Acute Code(s): F33.1 - Major depressive disorder, recurrent, moderate Plan Mr. Horn is a 73 year-old male with hx of MDD, possible PD who self presented to [facility] ED due to increase depression and suicidal ideation with plan to buy a gun. His utox is negative. 12/12 continue tx. 12/13 continue tx. 12/14 continue tx. 12/15 UA- burning sensation, KUB tomorrow, enema 12/16 continue tx. Reason for continued inpatient stay Substantial Risk for: inability to function Time Spent With Patient Time: Total time managing care of this patient today ____ minutes.
[2023-12-16] MEDS: traZODone HCL 100 MG TABLET 200 MG PO (21:14)
[2023-12-16] MEDS: cloNIDine HCL 0.1 MG TABLET PO (21:14)
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
[2023-12-17 09:44] VITALS: BP 123/69; PULSE 75; RESP 15; TEMP 36.2; O2SAT 97
[2023-12-17] MEDS: Lactulose 20 GM/30 ML SOLUTION PO (09:45)
[2023-12-17] MEDS: polyethylene glycoL 3350 17 GM POWD.PACK PO (09:46)
[2023-12-17] MEDS: Sennosides/Docusate Sodium TABLET 1 TAB PO (09:47)
[2023-12-17] MEDS: Lurasidone HCl 20 MG TABLET PO (09:47)
[2023-12-17] MEDS: buPROPion HCl XL 150 MG TAB.ER.24H 450 MG PO (09:47)
[2023-12-17] MEDS: Amphetamine Mixed Salts 10 MG TABLET 15 MG PO (09:47)
[2023-12-17] MEDS: DULoxetine HCl 60 MG CAPSULE.DR PO (09:47)
[2023-12-17] MEDS: diazePAM 5 MG TABLET PO (09:57)
== END 2023-12-17 10:57 | disposition home or self-care (01) | DRG 885 ==
PROVIDERS: Social Worker; Admitting Provider Psychiatry & Neurology Psychiatry; PCP Internal Medicine; Visit Provider Psychiatry & Neurology Psychiatry
DX: F33.1 Major depressive disorder, recurrent, moderate (principal); R45.851 Suicidal ideations; K21.9 Gastro-esophageal reflux disease without esophagitis; K59.09 Other constipation; Z20.822 Contact with and (suspected) exposure to COVID-19; Z91.51 Personal history of suicidal behavior; Z79.899 Other long term (current) drug therapy
CPT/HCPCS: 0241U; 36415; 74018; 80053; 80061; 81001; 82607; 82746; 83036; 84443; 87635

== ENCOUNTER → 2023-12-11 13:21 | Outpatient (BNV) | payer MEDICARE, MEDICAID, SELFPAY | PROVIDERS: Admitting Provider Psychiatry & Neurology Psychiatry; PCP Internal Medicine; Visit Provider Social Worker | DX: F33.1 Major depressive disorder, recurrent, moderate (principal) | CPT/HCPCS: 90792; 99231; 99232; 99238 ==

== ENCOUNTER → 2023-12-11 13:21 | Outpatient (BNV) | payer MEDICARE, MEDICAID, SELFPAY | PROVIDERS: Admitting Provider Psychiatry & Neurology Psychiatry; PCP Internal Medicine; Visit Provider Physician Assistant Medical | DX: K21.9 Gastro-esophageal reflux disease without esophagitis (principal); K59.00 Constipation, unspecified; K22.719 Barrett's esophagus with dysplasia, unspecified | CPT/HCPCS: 99221 ==